=== PATIENT | female | born 1990 | race Caucasian/White ===

== ENCOUNTER 2025-06-01 09:31 | Outpatient (AMB) | payer MEDICARE, MEDICAID, SELFPAY ==
--- OUTSIDE RECORDS SUMMARY | 2017-04-16 12:35 | XMS_ITS | Encounter Summary ---
Author Organization [facility] Address [address] [place] [address] Care Team Providers Care Rotary Filter Operator Name Role Phone Linda Denise MD Primary Care Provider Encounter Details Date Type Department Care Team (Late st Contact Info) Description 04/16/2017 12:35 PM EDT Hospital Encounter [facility] INTAKE [address] [place] [address] Charisse Quinonez MD [address] [place] [address] Social History Tobacco Use Types Packs/Day Years [...] as of this encounter Functional Status * Audit-C Score Answer Date of Assessment Author 0 [...] on filedocumented in this encounter Care Teams Rotary Filter Operator Relationship Specialty Start Date End Date Linda Denise MD [address] [place] [id number] PCP - General 10/07/16 03/21/22 documented as of this encounter
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
[2025-06-01 09:44] VITALS: BP 104/56; PULSE 78; TEMP 36.8; O2SAT 99; BMI 33.4
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
--- OUTSIDE RECORDS SUMMARY | 2025-06-01 10:33 | XMS_ITS ---
Author Name [facility] Organization Unknown Results Test Name/Text Value Interpretation Date Range Source ALBUMIN SERPL BCG [facility] 4.0 g/dL Normal 04/28/2024 3.5 - 5 [facility] PROT SERPL [facility] 7.1 g/dL Normal 04/28/2024 6.4 - 8.5 [facility] BUN SERPL MCNC 9.0 mg/dL Normal 04/28/2024 7 - 17 [facility] BILIRUB SERPL MCNC 0.3 mg/dL Normal 04/28/2024 0.3 - 1 [facility] ALP SERPL-CCNC 54.0 U/L Normal 04/28/2024 34 - 104 [facility] CREAT SERPL MCNC 0.6 mg/dL Normal 04/28/2024 0.5 - 1 [facility] ANION GAP SERPL SCNC 6.0 mmol/L Normal 04/28/2024 5 - 14 [facility] CALCIUM SERPL MCNC 9.1 mg/dL Normal 04/28/2024 8.4 - 10.2 [facility] POTASSIUM SERPL SCNC 4.0 mmol/L Normal 04/28/2024 3.5 - 5.1 [facility] CHLORIDE SERPL SC[facility] 104.0 mmol/L Normal 04/28/2024 98 - 1 07 [facility] GLUCOSE SERPL MC[facility] 91.0 mg/dL Normal 04/28/2024 70 - 199 [facility] ALT SERPL CCNC 16.0 U/L Normal 04/28/2024 7 - 52 [facility] AST SERPL CCNC 13.0 U/L Normal 04/28/2024 5 - 40 [facility] SODIUM SERPL SCNC 138.0 mmol/L Normal 04/28/2024 135 - 14 5 [facility] HCO3 SER SCNC 28.0 mmol/L Normal 04/28/2024 24 - 32 [facility] Clarity Ur Refract.auto CLEAR Normal 04/24/2024 [facility] Leukocyte esterase Ur Ql Strip.auto NEGATIVE Normal 04/24/2024 - [facility] Nitrite Ur Ql Strip.auto NEGATIVE Normal 04/24/2024 - [facility] Hgb Ur Ql Strip.auto NEGATIVE Normal 04/24/2024 - [facility] Color Ur Auto STRAW Normal 04/24/2024 [facility] ANH Sp Gr Ur Strip.auto 1.013 Normal 04/24/2024 1.005 - 1.03 [facility] Glucose Ur Ql Strip.auto NEGATIVE Normal 04/24/2024 - [facility] Ketones Ur Ql Strip.auto NEGATIVE Normal 04/24/2024 - [facility] pH Ur Strip.auto 7.0 Normal 04/24/2024 4.5 - 8 [facility] Prot Ur Ql Strip.auto NEGATIVE Normal 04/24/2024 - [facility] SPECIMEN SOURCE XXX URINE CLEAN CATCH Normal 04/23/2024 [facility] HCO3 SER SCNC 25.0 mmol/L Normal 04/23/2024 24 - 32 [facility] CHLORIDE SERPL SCNC 105.0 mmol/L Normal 04/23/2024 98 - 1 07 [facility] SODIUM SERPL SCNC 138.0 mmol/L Normal 04/23/2024 135 - 14 5 [facility] POTASSIUM SERPL SCNC 3.6 mmol/L Normal 04/23/2024 3.5 - 5.1 [facility] CALCIUM SERPL MCNC 9.1 mg/dL Normal 04/23/2024 8.4 - 10.2 [facility] BUN SERPL MCNC 11.0 mg/dL Normal 04/23/2024 7 - 17 [facility] CREAT SERPL MCNC 0.6 mg/dL Normal 04/23/2024 0.5 - 1 [facility] GLUCOSE SERPL MCNC 118.0 mg/dL Normal 04/23/2024 70 - 199 [facility] ANION GAP SERPL SCNC 8.0 mmol/L Normal 04/23/2024 5 - 14 [facility] ALP SERPL-CCNC 59.0 U/L Normal 04/23/2024 34 - 104 [facility] LDH SERPL L TO P CCNC 173.0 U/L Normal 04/23/2024 125 - 220 [facility] AST SERPL CCNC 18.0 U/L Normal 04/23/2024 5 - 40 [facility] ALT SERPL CCNC 20.0 U/L Normal 04/23/2024 7 - 52 [facility] NEUTROPHILS NO. BLD AUTO 8.0 K/uL Above high normal 04/23/2024 1.8 - 7.8 [facility] RBC NO. BLD AUTO 4.08 M/uL Below low normal 04/23/2024 4.2 - 5.4 [facility] MCV RBC AUTO 90.7 fL Normal 04/23/2024 78 - 100 [facility] LYMPHOCYTES NFR BLD AUTO 13.1 % Below low normal 04/23/2024 20 - 48 [facility] EOSINOPHIL NO. BLD AUTO 0.2 K/uL Normal 04/23/2024 0 - 0.5 [facility] MONOCYTES NO. BLD AUTO 0.4 K/uL Normal 04/23/2024 0 - 0.8 [facility] MCH RBC QN AUTO 31.5 pg Normal 04/23/2024 25 - 33 [facility] BASOPHILS NFR BLD AUTO 0.6 % Normal 04/23/2024 0 - 2 [facility] LYMPHOCYTES NO. BLD AUTO 1.3 K/uL Normal 04/23/2024 1 - 3.2 [facility] DIFFERENTIAL TYPE AUTOMATED Normal 04/23/2024 C [facility] HCT VFR BLD AUTO 36.9 % Below low normal 04/23/2024 37 - 47 [facility] MONOCYTES NFR BLD AUTO 3.8 % Normal 04/23/2024 2 - 12 [facility] PMV BLD AUTO 9.5 fL Normal 04/23/2024 7.4 - 11.4 [facility] ANH HGB BLD MCNC 12.8 g/dL Normal 04/23/2024 12.5 - 16 [facility] RAN PLATELET NO. BLD AUTO 254.0 K/uL Normal 04/23/2024 150 - 450 [facility] BASOPHILS IN BLOOD BY AUTOMATED COUNT 0.1 K/uL Normal 04/23/2024 0 - 0.2 [facility] NEUTROPHILS NFR BLD AUTO 80.9 % Above high normal 04/23/2024 44 - 74 [facility] MCHC RBC AUTO MCNC 34.8 g/dL Normal 04/23/2024 32 - 36 [facility] RDW RBC AUTO RTO 12.2 % Normal 04/23/2024 12.1 - 16.2 [facility] WBC NO. BLD AUTO 9.9 K/uL Normal 04/23/2024 4 - 10.5 [facility] EOSINOPHIL NFR BLD AUTO 1.6 % Normal 04/23/2024 0 - 6 [facility] BILIRUB DIRECT SERPL MCNC 0.1 mg/dL Normal 04/23/2024 0 - 0.2 [facility] BILIRUB SERPL MCNC 0.3 mg/dL Normal 04/23/2024 0.3 - 1 [facility] AMYLASE SERPL CCNC 33.0 U/L Normal 04/23/2024 29 - 103 [facility] LIPASE SERPL CCNC 32.0 U/L Normal 04/23/2024 11 - 82 C [facility] DUANE Scl70 Ab Ser-aCnc 0.8 Normal 02/04/2024 [facility] [employer] Ab Ser IA-aCnc 1.6 Normal 02/04/2024 [facility] C4 SERPL MCNC 35.0 mg/dL Normal 01/31/2024 19 - 52 [facility] C3 SERPL MCNC 147.0 mg/dL Normal 01/31/2024 87 - 200 [facility] cCP IgG SerPl-aCnc 1.0 Normal 02/04/2024 [facility] ESR Bld Qn Photometric 24.0 mm/h Above high normal 12/01/2023 0 - 20 [facility] EOSINOPHIL NFR BLD AUTO 5.6 % Normal 11/30/2023 0 - 6 [facility] LYMPHOCYTES NFR BLD AUTO 35.2 % Normal 11/30/2023 20 - 48 [facility] LYMPHOCYTES NO. BLD AUTO 2.1 K/uL Normal 11/30/2023 1 - 3.2 [facility] MONOCYTES NO. BLD AUTO 0.3 K/uL Normal 11/30/2023 0 - 0.8 [facility] EOSINOPHIL NO. BLD AUTO 0.3 K/uL Normal 11/30/2023 0 - 0.5 [facility] MONOCYTES NFR BLD AUTO 4.2 % Normal 11/30/2023 2 - 12 [facility] DIFFERENTIAL TYPE AUTOMATED Normal 11/30/2023 C [facility] NEUTROPHILS NO. BLD AUTO 3.2 K/uL Normal 11/30/2023 1.8 - 7.8 [facility] BASOPHILS IN BLOOD BY AUTOMATED COUNT 0.1 K/uL Normal 11/30/2023 0 - 0.2 [facility] BASOPHILS NFR BLD AUTO 1.1 % Normal 11/30/2023 0 - 2 [facility] NEUTROPHILS NFR BLD AUTO 53.9 % Normal 11/30/2023 44 - 74 [facility] PMV BLD AUTO 10.0 fL Normal 11/30/2023 7.4 - 11.4 [facility] EMG RBC NO. BLD AUTO 4.26 M/uL Normal 11/30/2023 4.2 - 5.4 [facility] HGB BLD MCNC 13.1 g/dL Normal 11/30/2023 12.5 - 16 [facility] MG MCH RBC QN AUTO 30.8 pg Normal 11/30/2023 25 - 33 [facility] MCHC RBC AUTO MCNC 33.3 g/dL Normal 11/30/2023 32 - 36 [facility] RDW RBC AUTO RTO 12.9 % Normal 11/30/2023 12.1 - 16.2 [facility] MCV RBC AUTO 92.4 fL Normal 11/30/2023 78 - 100 [facility] MG WBC NO. BLD AUTO 6.2 K/uL Normal 11/30/2023 4 - 10.5 [facility] HCT VFR BLD AUTO 39.4 % Normal 11/30/2023 37 - 47 [facility] PLATELET NO. BLD AUTO 229.0 K/uL Normal 11/30/2023 150 - 450 [facility] T4 FREE SERPL MCNC 0.7 ng/dL Normal 12/01/2023 0.5 - 1.3 [facility] URATE SERPL MCNC 4.4 mg/dL Normal 11/30/2023 2.5 - 7 [facility] T3 SERPL MCNC 118.0 ng/dL Normal 12/01/2023 70 - 204 [facility] POTASSIUM SERPL SCNC 3.8 mmol/L Normal 11/30/2023 3.5 - 5.1 [facility] CALCIUM SERPL MCNC 9.1 mg/dL Normal 11/30/2023 8.4 - 10.2 [facility] ALP SERPL-CCNC 62.0 U/L Normal 11/30/2023 34 - 104 [facility] ALT SERPL CCNC 17.0 U/L Normal 11/30/2023 7 - 52 [facility] GLUCOSE SERPL MCNC 93.0 mg/dL Normal 11/30/2023 70 - 199 [facility] PROT SERPL MCNC 6.6 g/dL Normal 11/30/2023 6.4 - 8.5 [facility] ANION GAP SERPL SCNC 11.0 mmol/L Normal 11/30/2023 5 - 14 [facility] AST SERPL CCNC 15.0 U/L Normal 11/30/2023 5 - 40 [facility] CREAT SERPL MCNC 0.6 mg/dL Normal 11/30/2023 0.5 - 1 [facility] CHLORIDE SERPL SCNC 106.0 mmol/L Normal 11/30/2023 98 - 1 07 [facility] HCO3 SER SCNC 23.0 mmol/L Below low normal 11/30/2023 24 - 3 2 [facility] ALBUMIN SERPL BCG MCNC 3.9 g/dL Normal 11/30/2023 3.5 - 5 [facility] BILIRUB SERPL MCNC 0.3 mg/dL Normal 11/30/2023 0.3 - 1 [facility] SODIUM SERPL SCNC 140.0 mmol/L Normal 11/30/2023 135 - 14 5 [facility] BUN SERPL MCNC 11.0 mg/dL Normal 11/30/2023 7 - 17 [facility] AST SERPL CCNC 14.0 U/L Normal 07/09/2023 5 - 40 [facility] ALT SERPL CCNC 15.0 U/L Normal 07/09/2023 7 - 52 [facility] ALP SERPL-CCNC 58.0 U/L Normal 07/09/2023 34 - 104 [facility] BUN SERPL MCNC 9.0 mg/dL Normal 07/09/2023 7 - 17 [facility] ALBUMIN SERPL BCG MCNC 3.9 g/dL Normal 07/09/2023 3.5 - 5 [facility] BILIRUB SERPL MCNC 0.3 mg/dL Normal 07/09/2023 0.3 - 1 [facility] PROT SERPL MCNC 6.9 g/dL Normal 07/09/2023 6.4 - 8.5 [facility] CALCIUM SERPL MCNC 8.8 mg/dL Normal 07/09/2023 8.4 - 10.2 [facility] HCO3 SER SCNC 26.0 mmol/L Normal 07/09/2023 24 - 32 [facility] GLUCOSE SERPL MCNC 97.0 mg/dL Normal 07/09/2023 70 - 199 [facility] ANION GAP SERPL SCNC 7.0 mmol/L Normal 07/09/2023 5 - 14 [facility] CREAT SERPL MCNC 0.5 mg/dL Normal 07/09/2023 0.5 - 1 [facility] POTASSIUM SERPL SCNC 4.1 mmol/L Normal 07/09/2023 3.5 - 5.1 [facility] SODIUM SERPL SCNC 139.0 mmol/L Normal 07/09/2023 135 - 14 5 [facility] CHLORIDE SERPL SCNC 106.0 mmol/L Normal 07/09/2023 98 - 1 07 [facility] TSH SerPl DL<=0.005 mIU/L-aCnc 1.83 uIU/mL Normal 07/09/2023 0.45 - 5.33 [facility] FOLATE SERPL MCNC 13.3 ng/mL Normal 07/09/2023 3 - [facility] VIT B12 SER MCNC 232.0 pg/mL Normal 07/09/2023 180 - 914 [facility] MCH RBC QN AUTO 30.0 pg Normal 07/09/2023 25 - 33 [facility] HCT VFR BLD AUTO 37.0 % Normal 07/09/2023 37 - 47 [facility] WBC NO. BLD AUTO 6.2 K/uL Normal 07/09/2023 4 - 10.5 [facility] HGB BLD MCNC 12.4 g/dL Below low normal 07/09/2023 12.5 - 16 [facility] MCV RBC AUTO 89.4 fL Normal 07/09/2023 78 - 100 [facility] MG PMV BLD AUTO 9.2 fL Normal 07/09/2023 7.4 - 11.4 [facility] PLATELET NO. BLD AUTO 241.0 K/uL Normal 07/09/2023 150 - 450 [facility] RDW RBC AUTO RTO 12.5 % Normal 07/09/2023 12.1 - 16.2 [facility] RBC NO. BLD AUTO 4.14 M/uL Below low normal 07/09/2023 4.2 - 5.4 [facility] MCHC RBC AUTO MCNC 33.5 g/dL Normal 07/09/2023 32 - 36 [facility] HDLC SERPL-MCNC 48.0 mg/dL Normal 07/09/2023 35 - 80 [facility] LDLc SerPl Calc-mCnc 149.0 mg/dL Above high normal 07/09/2023 50 - 130 [facility] TRIGL SERPL-MCNC 79.0 mg/dL Normal 07/09/2023 - 150 [facility] CHOLEST SERPL-MCNC 213.0 mg/dL Above high normal 07/09/2023 0 - 200 [facility] Hgb A1c MFr Bld HPLC 4.8 % Normal 07/09/2023 - 5.7 [facility] History of Medication Use Medication Directions Dispensed Refills Start Date End Date Status buPROPion XL (WELLBUTRIN XL) 150 mg 24 hr tablet Take 1 tablet (150 mg total) by mouth 1 (one) time each day in the morning. Do not crush, chew, or split. 09/01/19 25 025 active amoxicillin-clavulana te (AUGMENTIN) 875-125 mg per tablet Take 1 tablet by mouth 2 (two) times a day for 10 days. 08/07/20 24 024 active nirmatrelvir-ritonavi r (Paxlovid) 300 mg (150 mg x 2)-100 mg tablet therapy pack Take 3 tablets by mouth every 12 (twelve) hours for 5 days. Take number of ordered nirmatrelvir (300 mg = 2 tablets) and ritonavir (100 mg = 1 tablet) tablets at the same time. 08/07/20 24 024 active azelastine (ASTELIN) 137 mcg (0.1 %) nasal spray Administer 1 spray into each nostril 2 (two) times a day. Use in each nostril as directed 08/07/20 active fluticasone propionate (FLONASE) 50 mcg/actuation nasal spray Administer 2 sprays into each nostril 1 (one) time each day. Shake gently. Before first use, prime pump. After use, clean tip and replace cap. 08/07/20 active ibuprofen (ADVIL,MOTRIN) 600 mg tablet Take 1 tablet (600 mg total) by mouth every 6 (six) hours as needed for pain. 04/28/20 active ibuprofen 600 MG tablet Take 1 tablet (600 mg total) by mouth every 6 (six) hours as needed for pain. 04/28/20 active ibuprofen 600 MG tablet Take 1 tablet (600 mg total) by mouth every 6 (six) hours as needed for pain. 04/28/20 active Ciclopirox 8 % KIT Apply 1 Application topically every night at bedtime. Apply topically every night at bedtime. Apply over nail and surrounding skin. Apply daily over previous coat. After seven (7) days, may remove with alcohol and continue cycle. 04/24/20 active Ciclopirox 8 % KIT Apply 1 Application topically every night at bedtime. Apply topically every night at bedtime. Apply over nail and surrounding skin. Apply daily over previous coat. After seven (7) days, may remove with alcohol and continue cycle. 04/24/20 24 active dicyclomine (BENTYL) 10 mg capsule Take 2 capsules (20 mg total) by mouth 4 (four) times a day before meals and at bedtime. 04/23/20 24 025 active famotidine (PF) (PEPCID) injection 20 mg 20 mg, Intravenous, Once, On Laura 04/23/24 at 1745, For 1 doseMaximum IV Push dose of 40 mg. Dilute to final concentration of 4 mg/mL with 0.9% NaCl (may also use SWFI) and administer over 2 minutes. 04/23/20 24 024 completed ketorolac (TORADOL) injection 15 mg 15 mg, Intravenous, Once, On Laura 04/23/24 at 1745, For 1 dose 04/23/20 completed ondansetron (ZOFRAN) injection 4 mg 4 mg, Intravenous, Once, On Laura 04/23/24 at 1745, For 1 doseIV push over 2 to 5 minutes. 04/23/20 completed sodium chloride 0.9% bolus (NS) 1,000 mL 1,000 mL, Intravenous, at 2,000 mL/hr, Once, On Laura 04/23/24 at 1745, For 1 dose 04/23/20 completed dicyclomine (BENTYL) 10 MG capsule Take 2 capsules (20 mg total) by mouth 4 (four) times a day before meals and at bedtime. 04/23/20 active dicyclomine (BENTYL) 10 MG capsule Take 2 capsules (20 mg total) by mouth 4 (four) times a day before meals and at bedtime. 04/23/20 active ondansetron (ZOFRAN-ODT) 8 MG disintegrating tablet Take 1 tablet (8 mg total) by mouth every 8 (eight) hours as needed for nausea. 04/23/20 active ondansetron (ZOFRAN-ODT) 8 MG disintegrating tablet Take 1 tablet (8 mg total) by mouth every 8 (eight) hours as needed for nausea. 04/23/20 active ondansetron ODT (ZOFRAN-ODT) 8 mg disintegrating tablet Take 1 tablet (8 mg total) by mouth every 8 hours as needed. 04/23/20 active tkscjcbyul-zei-uousa- menth-euc (CICLODAN) 8 % topical solution Apply 1 Application topically every night at bedtime. Apply topically every night at bedtime. Apply over nail and surrounding skin. Apply daily over previous coat. After seven (7) days, may remove with alcohol and continue cycle. 04/21/20 025 active semaglutide (Ozempic) 1 mg/dose (4 mg/3 mL) injection pen Inject 0.75 mL (1 mg total) under the skin once a week. 04/21/20 024 active Semaglutide, 1 MG/DOSE, (Ozempic, 1 MG/DOSE,) 4 MG/3ML SOPN Inject 0.75 mL (1 mg total) under the skin once a week. 04/21/20 active ciclopirox (PENLAC) 8 % solution Apply topically every night at bedtime. Apply over nail and surrounding skin. Apply daily over previous coat. After seven (7) days, may remove with alcohol and continue cycle. 04/21/20 24 active ciclopirox (PENLAC) 8 % solution Apply topically every night at bedtime. Apply over nail and surrounding skin. Apply daily over previous coat. After seven (7) days, may remove with alcohol and continue cycle. 04/21/20 24 active montelukast (SINGULAIR) 10 mg tablet Take 1 tablet (10 mg total) by mouth every night at bedtime. 03/09/20 24 active Semaglutide, 1 MG/DOSE, (Ozempic, 1 MG/DOSE,) 4 MG/3ML SOPN Inject 0.75 mL (1 mg total) under the skin once a week. 03/09/20 024 active prazosin (MINIPRESS) 1 mg capsule Take 1 capsule (1 mg total) by mouth every night at bedtime. 03/09/20 active ergocalciferol (VITAMIN D-2) 1,250 mcg (50,000 unit) capsule Take 1 capsule (50,000 Units total) by mouth once a week. 02/03/20 active ergocalciferol (VITAMIN D2) capsule 10581 units Take 1 capsule (50,000 Units total) by mouth once a week. 02/03/20 active ergocalciferol (VITAMIN D2) capsule 62257 units Take 1 capsule (50,000 Units total) by mouth once a week. 02/03/20 active montelukast (SINGULAIR) 10 MG tablet Take 1 tablet (10 mg total) by mouth every night at bedtime. 01/16/20 24 active montelukast (SINGULAIR) 10 MG tablet Take 1 tablet (10 mg total) by mouth every night at bedtime. 01/16/20 24 active fluticasone propionate (FLONASE) 50 mcg/actuation nasal spray spray/apply 1 spray in each nostril daily. 01/16/20 24 aborted fluticasone (FLONASE) 50 MCG/ACT nasal spray spray/apply 1 spray in each nostril daily. 01/16/20 active Semaglutide,0.25 or 0.5MG/DOS, (Ozempic, 0.25 or 0.5 MG/DOSE,) 2 MG/3ML SOPN Inject 0.75 mL (0.5 mg total) under the skin once a week. 12/31/19 active Semaglutide,0.25 or 0.5MG/DOS, (Ozempic, 0.25 or 0.5 MG/DOSE,) 2 MG/3ML SOPN Inject 0.75 mL (0.5 mg total) under the skin once a week. 12/31/19 active Semaglutide,0.25 or 0.5MG/DOS, (Ozempic, 0.25 or 0.5 MG/DOSE,) 2 MG/3ML SOPN Inject 0.38 mL (0.25 mg total) under the skin once a week. 12/05/19 24 aborted Phentermine HCl 8 MG TABS Take 8 mg by mouth daily. 09/04/19 active topiramate (Topamax) 25 MG tablet Take 2 tablets (50 mg total) by mouth every night at bedtime for 45 days. 09/04/19 active benzonatate (Tessalon Perles) 100 MG capsule Take 1 capsule (100 mg total) by mouth 3 (three) times a day as needed for cough. 08/21/19 24 025 active guaiFENesin-codeine (ROBITUSSIN-AC) 100-10 MG/5ML syrup Take 5 mL by mouth 3 (three) times a day as needed for cough. 08/21/19 24 aborted topiramate (Topamax) 25 MG tablet Take 1 tablet (25 mg total) by mouth every night at bedtime. 07/30/20 active Phentermine HCl 8 MG TABS Take 4 mg by mouth daily. 07/30/20 active Phentermine HCl 8 MG Tab Take 4 mg by mouth. 07/30/20 active topiramate (TOPAMAX) 25 MG tablet 07/30/20 active albuterol (PROVENTIL HFA; VENTOLIN HFA) 108 (90 Base) MCG/ACT inhaler Inhale 2 puffs 4 times daily (every 6 hours) as needed for wheezing. 05/05/20 23 active busPIRone (BUSPAR) 5 MG tablet 04/27/20 active cyanocobalamin ([employer] Vitamin B-12) 1000 MCG tablet Take 1 tablet (1,000 mcg total) by mouth daily. 04/04/20 active cyanocobalamin (VITAMIN B12) 1000 MCG tablet Take 1,000 mcg by mouth. 04/04/20 active busPIRone (BUSPAR) 5 MG tablet Take 1 tablet (5 mg total) by mouth 3 (three) times a day. 03/28/20 023 aborted famotidine (PEPCID) 20 MG tablet Take 1 tablet (20 mg total) by mouth daily. 01/18/20 active famotidine (PEPCID) 20 MG tablet Take 1 tablet by mouth daily. 01/18/20 active hydrOXYzine (ATARAX) 25 MG tablet 25 mgs up to TID PRN severe anxiety 01/18/20 23 active hydrOXYzine (ATARAX) 25 MG tablet 25 mgs up to TID PRN severe anxiety 01/18/20 23 active hydrOXYzine HCl (ATARAX) 25 MG tablet 25 mgs up to TID PRN severe anxiety 01/18/20 23 active hydrOXYzine HCL (ATARAX) 25 mg tablet 25 mgs up to TID PRN severe anxiety 01/18/20 23 active LORazepam (ATIVAN) 0.5 mg tablet Up to BID PRN severe anxiety - MAY CAUSE DROWSINESS 01/18/20 23 active LORazepam (ATIVAN) 0.5 MG tablet Up to BID PRN severe anxiety - MAY CAUSE DROWSINESS 01/18/20 23 active LORazepam (ATIVAN) 0.5 MG tablet Up to BID PRN severe anxiety - MAY CAUSE DROWSINESS 06/01/20 23 active LORazepam (ATIVAN) 0.5 MG tablet Up to BID PRN severe anxiety - MAY CAUSE DROWSINESS 01/18/20 active Amoxicillin-Pot Clavulanate 875-125 MG Oral Tablet Amoxicillin-Pot Clavulanate 875-125 MG Oral TabletTAKE 1 TABLET EVERY 12 HOURS DAILY. Quantity: 20 [facility]: [facility] Greta.Debby, F.A.C.S., [place] Start : 10-Jan-2023 End : [id number] 01/11/20 023 completed Blood Pressure Monitoring Kit Use when feeling lightheaded or dizzy. 01/10/20 23 024 active prazosin (MINIPRESS) 1 MG capsule Take 1 capsule (1 mg total) by mouth every night at bedtime. 12/27/19 23 024 active prazosin (MINIPRESS) 1 MG capsule Take 1 mg by mouth. 12/27/19 23 active prazosin (MINIPRESS) 1 MG capsule Take 1 capsule (1 mg total) by mouth every night at bedtime. 12/27/19 23 active lidocaine (XYLOCAINE) 2 % solution Take 5 mL by mouth 4 (four) times a day as needed for mild pain. Swish and spit. 12/09/19 23 024 active fluticasone (FloNASE) 50 mcg/spray nasal spray 1 spray into each nostril daily. 12/09/19 23 023 active gabapentin (NEURONTIN) 100 mg capsule 09/04/19 23 active gabapentin (NEURONTIN) 100 MG capsule 09/04/19 23 active gabapentin (NEURONTIN) 100 MG capsule 09/04/19 23 active Ferralet 90 one tab PO daily 0 23 023 active ondansetron (ZOFRAN-ODT) 4 MG disintegrating tablet Take 1 tablet (4 mg total) by mouth 3 times daily (every 8 hours) as needed. 08/16/20 22 active diphenhydrAMINE (BENADRYL) 2 % cream Apply topically 3 (three) times a day as needed. 07/31/20 22 active lidocaine (Lidoderm) 5 % 07/23/20 22 active lidocaine (Lidoderm) 5 % 07/23/20 active lidocaine (LIDODERM) 5 % patch 07/23/20 active lidocaine (LIDODERM) 5 % patch Place 1 patch on the skin every 24 hours. 07/20/20 active lidocaine (LMX 4) 4 % cream 07/09/20 completed polyethylene glycol 17 g packet Take 1 packet (17 g total) by mouth daily as needed for constipation. 06/27/20 active HYDROmorphone (DILAUDID) 2 MG tablet Take 1 tablet (2 mg total) by mouth every 4 (four) hours as needed for severe pain. Max Daily Amount: 12 mg 06/26/20 active acetaminophen (TYLENOL) 325 MG tablet Take 2 tablets (650 mg total) by mouth 4 times daily (every 6 hours) as needed for mild pain or moderate pain. 06/26/20 active albuterol (PROVENTIL HFA; VENTOLIN HFA) 108 (90 Base) MCG/ACT inhaler Inhale 1-2 puffs every 4 (four) hours as needed for wheezing. 03/22/20 active acetaminophen (TYLENOL) 500 MG tablet Take 2 tablets (1,000 mg total) by mouth 4 times daily (every 6 hours) as needed for mild pain (pain). 03/22/20 aborted predniSONE (DELTASONE) 20 MG tablet Take 1 tablet (20 mg total) by mouth daily. With food. 03/22/20 aborted docusate sodium 100 mg capsule Take 1 capsule every day by oral route for 30 days. 03/08/20 completed cetirizine (ZyrTEC) 10 MG tablet Take 1 tablet (10 mg total) by mouth daily. 12/20/19 aborted amoxicillin-clavulana te (AUGMENTIN) 875-125 MG per tablet Take 1 tablet by mouth 2 (two) times a day. 12/09/19 aborted benzonatate (TESSALON) 200 MG capsule Take 1 capsule (200 mg total) by mouth 3 (three) times a day as needed for cough. 11/28/19 22 024 active brompheniramine-pseud oephedrine-DM (BROMFED DM) 30-2-10 MG/5ML syrup Take 5 mL by mouth 3 (three) times a day as needed for congestion or cough. 11/28/19 22 aborted ipratropium (ATROVENT) 0.06 % nasal spray 2 sprays into each nostril 3 (three) times a day. 11/28/19 022 aborted butalbital-acetaminop hen-caffeine (FioriCET) 50-300-40 mg Cap capsule Take 1 capsule by mouth every 6 (six) hours. 09/20/19 aborted triamcinolone (NASACORT AQ) 55 MCG/ACT Aerosol nasal spray 1 spray into each nostril daily. 05/17/20 21 aborted albuterol 108 (90 Base) MCG/ACT inhaler Inhale 2 puffs into the lungs every 6 (six) hours as needed for wheezing. 03/20/20 21 active albuterol 108 (90 Base) MCG/ACT inhaler Inhale 2 puffs into the lungs every 6 (six) hours as needed for wheezing. 03/20/20 21 active albuterol HFA (PROAIR HFA ; PROVENTIL HFA ; VENTOLIN HFA) 90 mcg/actuation inhaler Inhale 2 puffs by mouth every 6 hours as needed. 03/20/20 21 active methylPREDNISolone 4 MG Oral Tablet Therapy Pack methylPREDNISolone 4 MG Oral Tablet Therapy PackTake pack as directed Quantity: 1 Refills: 0Cassidy Wiley PA-C Start : [id number] Tablet Pack 07/13/20 19 completed fluticasone (FLONASE) 50 MCG/ACT nasal spray spray/apply 1 spray in each nostril daily. 06/24/20 19 024 active Ibuprofen 800 MG Oral Tablet Ibuprofen 800 MG Oral Tablet Quantity: 21 Refills: 0 Start : [id number] 05/25/20 19 completed Ibuprofen 600 MG Oral Tablet Ibuprofen 600 MG Oral Tablet Quantity: 20 Refills: 0 Start : [id number] 04/11/20 19 completed amoxicillin 875 mg-potassium clavulanate 125 mg tablet TAKE 1 TABLET BY MOUTH TWICE A DAY completed benzonatate 200 mg capsule TAKE 1 CAPSULE BY MOUTH THREE TIMES A DAY NEEDED FOR COUGH completed buspirone 5 mg tablet completed Lidocaine Viscous 2 % mucosal solution SWISH AND SPIT WITH 5 ML BY MOUTH 4 TIMES A DAY NEEDED FOR MILD PAIN completed Lomaira 8 mg tablet TAKE 8 MG BY MOUTH DAILY. completed metronidazole 0.75 % (37.5 mg/5 gram) vaginal gel INSERT 1 APPLICATORFUL VAGINALLY EVERY DAY FOR 5 DAYS completed doxylamine 10 mg-pyridoxine (vit B6) 10 mg tablet,delayed release Take 2 tablets every day by oral route at bedtime for 30 days. completed gabapentin 100 mg capsule 023 completed hydromorphone 2 mg tablet TAKE 1 TABLET BY MOUTH EVERY 6 HOURS NEEDED FOR SEVERE PAIN. MAX DAILY AMOUNT: 8 MG 023 completed ipratropium bromide 42 mcg (0.06 %) nasal spray SPRAY 2 SPRAYS INTO EACH NOSTRIL 3 TIMES A DAY. 023 completed Lidoderm 5 % topical patch PLACE 1 PATCH ONTO THE SKIN DAILY. REMOVE & DISCARD PATCH WITHIN 12 HOURS OR DIRECTED BY 023 completed ondansetron 4 mg disintegrating tablet 023 completed vitamin with iron and folic acid ( VITAMINS) 28-0.8 MG Tab tablet Take 1 tablet by mouth daily. active prednisone 20 mg tablet completed Allergy Relief (cetirizine) 10 mg tablet TAKE 1 TABLET BY MOUTH ONCE DAILY completed azelastine 137 mcg (0.1 %) nasal spray USE 1 SPRAY(S) IN EACH NOSTRIL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
--- OUTSIDE RECORDS SUMMARY | 2025-06-01 10:33 | XMS_ITS | Clinical Summary ---
Author Organization [facility] Address [address] [place] [address] Care Team Providers Care Proration Clerk Name Role Phone Tenzin Amaral MD Primary Care Provider [phone] Allergies Active Allergy Reactions Criticality Noted Date Comments Keflex 07/13/2019 Medications Ibuprofen (ADVIL,MOTRIN) 600 MG tablet 20 0 04/11/2019 Active Ibuprofen (ADVIL,MOTRIN) 800 MG tablet 21 0 05/25/2019 Active methylPREDNISol one (MEDROL DOSPAK) 4 MG tablet Take pack as directed 1 0 07/13/2019 Active methylPREDNISol one (MEDROL DOSPAK) 4 MG tablet Take pack as directed 1 0 09/10/2019 Active Lidocaine (Lidoderm) 5 % patch 30 0 07/23/2022 Active Gabapentin (NEURONTIN) 100 MG capsule 90 0 09/04/2022 Active Benzonatate (TESSALON) 200 MG capsule 21 0 12/08/2022 Active Lidocaine Viscous HCl (XYLOCAINE) 2 % solution SWISH AND SPIT 5 ML BY MOUTH 4 TIMES A DAY NEEDED FOR MILD PAIN 100 0 12/08/2022 Active Prazosin HCl (MINIPRESS) 1 MG capsule TAKE 1 CAPSULE (1 MG TOTAL) BY MOUTH EVERY NIGHT AT BEDTIME 60 0 12/26/2022 Active famotidine (PEPCID) 20 MG tablet 60 0 01/17/2023 Active hydrOXYzine HCl (ATARAX) 25 MG tablet 30 0 01/17/2023 Active LORazepam (ATIVAN) 0.5 MG tablet 10 0 01/17/2023 Active Active Problems Problem Noted Date Diagnosed Date Headache 01/31/2022 Allergic rhinitis 01/31/2022 Nasal congestion 01/06/2022 Chronic sinusitis, unspecified location 05/19/20 22 Dysfunction of both eustachian tubes 07/17/2019 Non-recurrent acute serous otitis media of both ears 07/13/2019 Social History Tobacco Use Types Packs/Day Years Used Date Smoking Tobacco: Never Assessed Comments Unknown Sex and Gender Information Value Date Recorded Sex Assigned at Not on file Legal Sex Female 5:37 PM EDT Gender Identity Not on file Sexual Orientation Not on file Plan of Treatment Health Maintenance Due Date Last Done Comments Hepatitis C Screening 1992 Pap Smear 2008 DTaP/Tdap/Td (1 - Tdap) 01/28/2010 Hep B (1 of 3 - 19+ 3-dose series) 01/28/2011 COVID-19 Vaccine ( - 2024-2 6 season) 2025 Influenza (#1) 2025 Zoster (Shingrix) (1 of 2) 01/28/2042 HPV Vaccine (No Doses Required) Completed Hep A Aged Out No longer eligi ble based on patient's age to complete this topic Hib Aged Out No longer eligi ble based on patient's age to complete this topic Meningococcal ACWY Aged Out No longer eligible based on patient's age to complete this topic Pneumococcal Aged Out No longer eligi ble based on patient's age to complete this topic Care Teams Proration Clerk Relationship Specialty Start Date End Date Tenzni Amaral MD [address] [place] [address] PCP - General 03/25/23
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
== END 2025-06-01 10:23 | disposition home or self-care (01) ==
LOC: HO.HMCFMS 09:31
PROVIDERS: PCP Student in an Organized Health Care Education/Training Program; Visit Provider Student in an Organized Health Care Education/Training Program
DX: M79.2 Neuralgia and neuritis, unspecified (principal); M54.30 Sciatica, unspecified side; F51.5 Nightmare disorder; F43.12 Post-traumatic stress disorder, chronic; F43.10 Post-traumatic stress disorder, unspecified; F41.9 Anxiety disorder, unspecified; F32.A Depression, unspecified; G47.00 Insomnia, unspecified; R06.83 Snoring; E66.811 Obesity, class 1

== ENCOUNTER 2025-06-01 09:31 | Outpatient (REF) | payer MEDICARE, MEDICAID, SELFPAY ==
[2025-06-01 13:18] LABS: Appearance Urine Turbid; Glucose Urine UA Negative (Negative); PH 5.5 (5.0-9.0); Specific Gravity - Urine 1.025 (1.005-1.025)
[2025-06-01 13:25] LABS: MANUAL DIFF FLAG NO
[2025-06-01 13:31] LABS: Hematocrit 38.5 % (37.0-47.0); Hemoglobin 12.7 g/dl (12.0-16.0); Imm Gran Abs Auto 0.01 X10*3/uL (0.00-0.03); Imm Gran Pct Auto 0.2 % (0.0-0.4); Lymphocytes Absolute Auto 2.3 X10*3/uL (1.2-4.9); Mean Corpuscular HGB Conc 33.0 g/dl (31.0-35.0); Mean Corpuscular Hemoglobin 30.1 pg (27.0-33.0); Mean Corpuscular Volume 91.2 fL (80.0-98.0); NRBC Abs Auto 0.000 X10*3/uL (0.0-0.012); NRBC Pct Auto 0.0 /100WBC (0.0-0.2); Platelet Count 256 X10*3/uL (160-400); Red Blood Count 4.22 X10*6/uL (4.20-5.50); White Blood Count 6.0 X10*3/uL (4.8-10.8)
[2025-06-01 13:59] LABS: Alanine Aminotransferase 28 U/L (0-31); Albumin Level 4.1 g/dL (3.5-5.0); Alkaline Phosphatase 67 U/L (39-117); Anion Gap 8 (12-20); Aspartate Amino Transferase 28 U/L (5-31); Blood Urea Nitrogen 11 mg/dL (9-16); Calcium 8.9 mg/dL (8.4-10.2); Carbon Dioxide 26 mmol/L (22-29); Chloride 110 mmol/L (96-108); Cholesterol 232 mg/dL (<200); Estimated Glomerular Filt Rate > 60; HDL Cholesterol 42 mg/dL (>40); Potassium 3.7 mmol/L (3.3-5.1); Sodium 140 mmol/L (135-145); Total Protein 7.1 g/dL (6.5-8.0); Triglycerides 148 mg/dL (<150)
[2025-06-01 14:27] LABS: Folate 6.4 ng/mL (> or = 4.0); Vitamin B12 259 pg/mL (200-900)
[2025-06-02 04:05] LABS: HBS Num1 105.68 mIU/mL (0-7.99); HBsAGNum1 0.41 S/CO (0.00-0.99); HIV Num 1 0.06 S/CO (0.00-0.99); Hepatitis B Surface Antigen Negative (Negative); ~HepC Num1 0.16 S/CO (0.00-0.79); ~Hepatitis B Surface Antibody REACTIVE (Nonreactive); ~Hepatitis C Antibody Nonreactive (Nonreactive)
[2025-06-05 11:44] LABS: VITAMIN D (1,25 OH) D3 32 pg/mL; Vit D (1,25-Dihydroxy) Total 32 pg/mL (18-72); Vitamin D (1,25 OH) D2 <8 pg/mL
== END 2025-06-01 09:32 | disposition home or self-care (01) ==
LOC: HO.HKASLDS 09:31
PROVIDERS: PCP Student in an Organized Health Care Education/Training Program; Visit Provider Student in an Organized Health Care Education/Training Program
DX: Z13.9 Encounter for screening, unspecified (principal); M79.2 Neuralgia and neuritis, unspecified; M54.30 Sciatica, unspecified side; F51.5 Nightmare disorder; F43.12 Post-traumatic stress disorder, chronic; F41.9 Anxiety disorder, unspecified; F32.A Depression, unspecified; G47.00 Insomnia, unspecified; R06.83 Snoring; E66.811 Obesity, class 1; Z68.33 Body mass index [BMI] 33.0-33.9, adult
CPT/HCPCS: 36415; 80053; 80061; 81003; 82607; 82652; 82746; 83036; 84443; 85025; 86706; 86803; 87340; 87389; 96127; 99202

== ENCOUNTER 2025-06-15 11:34 | Outpatient (AMB) | payer MEDICARE, MEDICAID, SELFPAY ==
--- OUTSIDE RECORDS SUMMARY | 2017-04-16 12:35 | XMS_ITS | Encounter Summary ---
Author Organization [facility] Address [address] [place] [address] Care Team Providers Care Statistics Intern Name Role Phone Linda Denise MD Primary Care Provider Encounter Details Date Type Department Care Team (Late st Contact Info) Description 04/16/2017 12:35 PM EDT Hospital Encounter [facility]TA[facility] [address] [place] [address] Charisse Quinonez MD [address] [place] [address] Social History Tobacco Use Types Packs/Day Years Used Date Smoking Tobacco: Never Smokeless Tobacco: Never Alcohol Use Standard Drinks/Week Comments Not Currently 0 (1 standard drink = 0.6 oz pur e alcohol) Occasional AUDIT-C Answer Date Recorded Q1: How often do you have a drink containing alcohol? Never 10/20/2022 Q2: How many drinks containi ng alcohol do you have on a typical day when you are drinking? Patient does not drink Q3: How often do you have si x or more drinks on one occasion? Never 10/20/2022 Comments No Sex and Gender Information Value Date Recorded Sex Assigned at Female 08/21/2022 7:41 AM EST Legal Sex Female 7:57 PM EDT Gender Identity Female 05/15/2022 12:46 PM EDT Sexual Orientation Heterosexual (straight) 08/21 7:41 AM EST COVID-19 Exposure Response Date Recorded In the last 10 days, have yo u been in contact with someone who was confirmed or suspected to have Coronavirus/COVID-19? Unable to assess 12/08/2022 9:30 AM EDT documented as of this encounter Functional Status * AUDIT-C Score Answer Date of Assessment Author 0 10/20/2022 8:55 AM Linda Santo RN * Question Answer Date of Assessment Author AUDIT-C Total Score - Female 0 10/20/2022 8:55 AM Deandre Santo RN Q1: How often do you have a drink containing alcohol? Never 10/20/2022 8:55 AM Deandre Santo RN Q2: How many drinks containing alcohol do you have on a typical day when you are drinking? Patient does not drink 10/20/2022 8:55 AM Linda Santo RN Q3: How often do you have six or more drinks on one occasion? Never 10/20/2022 8:55 AM Deandre Santo RN * Level of Risk per Screen Answer Date of Assessment Author Low Risk 10/20/2022 8:55 AM Linda Santo RN documented as of this encounter Plan of Treatment Not on file documented as of this encounter Visit Diagnoses Not on filedocumented in this encounter Care Teams Statistics Intern Relationship Specialty Start Date End Date Linda Denise MD [address] [place] [id number] PCP - General 10/07/16 03/21/22 documented as of this encounter
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
[2025-06-15 11:40] VITALS: BP 117/57; PULSE 68; RESP 18; TEMP 36.7; O2SAT 98; BMI 34.3
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
--- OUTSIDE RECORDS SUMMARY | 2025-06-15 14:52 | XMS_ITS | Clinical Summary ---
Author Organization [facility] Address [address] [place] [address] Care Team Providers Care Health Insurance Sales Agent Name Role Phone Eugenie Holt MD Primary [...] 12 01/16/2024 Active ergocalciferol (VITAMIN D2) capsule 54271 units Take 1 capsule (50,000 Units total) [...] ADTP (intensive outpt level of care) at [facility] after inpatient stay IOL for increased depression [...] 12/28/2022 Overview: Placed 12/24/2019 Remove : 12/23/2029 [facility] # [id number] Lot # [id number] Encounter for long-term (cur rent) use of medications 07/26/2016 01/30/2018 BMI 34.0-34.9,adult 07/23/2016 09/23/19 Healthcare maintenance 07/23/201612/03 Asthma 07/13/2016 01/30/2018 Bipolar I disorder 06/25/2016 3 Overview: Patient admitted 10/07/[address] [facility]. Per patient Bipolar II, per prior [...] Depression Mother Diabetes Mother Heart disease Mother NE @ 38, now C HF Diabetes Other Hyperlipidemia Other Heart disease Paternal Uncle [place] 51 Other Sister Special needs, mind and [...] age to complete this topic Care Teams Health Insurance Sales Agent Relationship Specialty Start Date End Date Eugenie Holt MD PCP - General 02/12/24
--- OUTSIDE RECORDS SUMMARY | 2025-06-15 14:52 | XMS_ITS | Clinical Summary ---
Author Organization [facility] Address [address] [place] [address] Care Team Providers Care Bankman Name Role Phone Pcp, No Primary Care Provider UnavailJeannine Brunner MD Unavailable [phone] Marti Hudson MD Unavailable [phone] Allergies Active Allergy Reactions Criticality Noted Date [...] Name Priority Date/Time Associated Diagnosis Comments THINPREP PAP(UPHOLSTERER OUTSIDE)GC/CT HPV SCR RFX HPV 16,18/45 Routine 02/21/2024 12:00 AM EDT HIV 1/2 AG/AB CMIA REFLEX TO CONFIRMATION Routine 08/01/2022 8:56 AM EST from Last 3 Months or Most Recently Relevant to Health Maintenance Results * ThinPrep Pap(Consumer Marketing Analyst)GC/CT HPV Scr Rfx HPV 16,18/45 (02/21/2024 12:00 [...] Date: NG HPV RESULTS: HPV mRNA E6/E7 [id number] Approved: 02/24/24 Negative REF RANGE: Negative CPT Codes: 35386 ICD Codes: Z01.419, Z11.3 02/21/2024 02/22/2024 2:3 4 AM EDT Marti Hudson MD LAB AMB PATH/CYTO ORDERAB LES Final Result Performing Organization Address City/[facility]/ZIP Co de Phone Number [facility] [address], [place] * HIV 1/2 Ag/Ab CMIA Reflex to Confirmation (08/01/2022 8:56 AM EST) HIV Ag/Ab, 4th Gen Non-Reacti ve Non-Reacti ve [facility] Comment: Results show no evidence of infection by HIV 1/2. If clinically indicated, repeat CMIA or test by nucleic acid amplification. Other 08/01/2022 8:56 AM EST 08/01/2022 8:38 PM EST Narrative [facility] CT [facility] - 08/02/2022 5:33 AM EST FASTING:YES Marti Hudson MD LAB BLOOD ORDERABLES Radha l Result Performing Organization Address [facility]/ZIP Co de Phone Number [facility] [address] from Last 3 Months or Most Recently Relevant to Health Maintenance Insurance [facility] [employer] [facility] [employer] Advance Directives * Full Code [...] Child, Parent, Adult Sibling, Grandparent) Care Teams Bankman Relationship Specialty Start Date End Date Pcp, No PCP - General General Medicine 06/24/22 Jeannine Stearns MD [address] [place] [id number] Family Medicine 06/24/22 Marti Hudson MD [address] [place] [id number] Obstetrics and Gynecology 03/13/22
--- OUTSIDE RECORDS SUMMARY | 2025-06-15 14:52 | XMS_ITS | Clinical Summary ---
Author Organization [facility] Address [address] [place] [address] Care Team Providers Care Gunstock Spray Unit Adjuster Name Role Phone Tenzin Amaral MD Primary Care Provider [phone] Allergies Active Allergy Reactions Criticality Noted Date [...] age to complete this topic Care Teams Gunstock Spray Unit Adjuster Relationship Specialty Start Date End Date Tenzin Amaral MD [address] [place] [address] PCP - General 03/25/23
--- OUTSIDE RECORDS SUMMARY | 2025-06-15 14:52 | XMS_ITS | Clinical Summary ---
Author Organization [facility] Address [address] [place] [address] Phone Care Team Providers Care Construction Representative Name Role Phone Fredrick Lee MD Primary Care Provider [phone] Allergies Active Allergy Reactions Criticality Noted Date [...] Severe episode of recurrent major depressive disorder ([facility] V24, [facility] V28) 10/07/2016 Attention deficit hyperactiv ity disorder (ADHD), combined type 09/07/2016 Alcohol abuse, in remission 07/26/2016 Depression 07/26/2016 Overview (07/10/2024): Referred to Adult Day Treatment Program ADTP (intensive outpt level of care) at [facility] after inpatient stay IOL for increased [...] Type Department Care Team Description 05/17/[address] [address] Fredrick Lee MD from Last 3 Months Immunizations Immunization Administration Dates Next Due HPV 9-valent (Gardisil) 9yo to less than 46yo Tdap Tetanus diptheria acell ular pertussis (Boostrix; Adacel) 7yo and older 06/24/2022 Surgical History Surgery Date Site/Laterality Comments WISDOM TOOTH EXTRACTION 08/19/2007 PROCEDURE:WISDOM TOOTH EXTRACTION BREAST SURGERY 03/01/2020 Bilateral PROCEDURE:REDUCTION MAMMAPLASTY;COMMENT:Procedure: BILATERAL BREAST REDUCTION; Surgeon: Christian Steele MD; Location: [facility]; Service: Plastics; Laterality: Bilateral; SECTION 10/21/2022 PROCEDURE: SECTION Medical History Medical History Date Comments Bipolar I disorder ([facility] V24, [facility] V28) 2010 DX:Bipolar I disorder ([facility]);COMMENT:age 20 involuntary hospitalization [place] 24hrs Anxiety 06/25/2016 DX:Anxiety Allergic rhinitis 06/25/2016 [...] CMS/HCC V28) 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[facility]);COMMENT: Cluster B traits per Psych records PUD (peptic ulcer disease) DX:PU D (peptic ulcer disease);COMMENT: stomach ulcers depression DX:Postpar matias depression Conduct disorder DX:Conduct diso rder;COMMENT: by Hx per Psych records Hyperlipidemia DX:Hyperlipidemi a Asthma DX:Asthma Migraine headache DX:Migraine he adache Family History Medical History Relation Name Comments Alcohol abuse Father Drug abuse Father Hyperlipidemia Father Hypertension Father Heart disease Father's Brother [place] 51 Anxiety disorder Mother Depression Mother Diabetes Mother Heart disease Mother [place] @ 38, now C HF Bipolar disorder [...] Results * Cervical Cancer Screening: HPV (02/21/2024) [facility] Cervical Cancer Screening: HPV no interpretation , abstracted [facility] Provider HEALTH MAINTENANCE Final Result * Depression Screening (07/30/2023) [facility] Depression Screening abstracted [facility] Provider HEALTH MAINTENANCE Final Result * (ABNORMAL) Lipid panel (07/09/2023) [facility] Triglycerides 79 <=150 mg/dL Cholesterol 213(A) 0 - 200 mg/dL HDL 48 35 - 80 mg/dL LDL Cholesterol 149(A) 50 - 130 mg/dL Blood Venous blood specimen / Unknown [facility] Provider LAB BLOOD ORDERABLES Radha l Result * HIV Screening (08/01/2022) [facility] HIV Screening abstracted [facility] Provider HEALTH MAINTENANCE Final Result from Last 3 Months or Most Recently Relevant to Health Maintenance Insurance MEDICARE [place]ICA[place] - [place] Care Teams Construction Representative Relationship Specialty Start Date End Date Fredrick Lee MD [address] [place] [address] PCP - General Family Medicine 02/10/25
== END 2025-06-15 11:56 | disposition home or self-care (01) ==
LOC: HO.HMCFMS 11:35
PROVIDERS: Visit Provider Student in an Organized Health Care Education/Training Program
DX: F43.10 Post-traumatic stress disorder, unspecified (principal); F41.9 Anxiety disorder, unspecified; F32.A Depression, unspecified; G47.00 Insomnia, unspecified; J32.9 Chronic sinusitis, unspecified; E66.9 Obesity, unspecified; E78.00 Pure hypercholesterolemia, unspecified; E53.8 Deficiency of other specified B group vitamins; G47.30 Sleep apnea, unspecified

== ENCOUNTER → 2025-06-15 11:34 | Outpatient (BNVA) | payer MEDICARE, MEDICAID, SELFPAY | PROVIDERS: Visit Provider Student in an Organized Health Care Education/Training Program | DX: F43.10 Post-traumatic stress disorder, unspecified (principal); F41.9 Anxiety disorder, unspecified; F32.A Depression, unspecified; G47.00 Insomnia, unspecified; J32.9 Chronic sinusitis, unspecified; E66.9 Obesity, unspecified; Z68.34 Body mass index [BMI] 34.0-34.9, adult; E78.00 Pure hypercholesterolemia, unspecified; E53.8 Deficiency of other specified B group vitamins; G47.30 Sleep apnea, unspecified | CPT/HCPCS: 99212 ==

== ENCOUNTER 2025-07-30 08:27 | Outpatient (AMB) | payer MEDICARE, MEDICAID, SELFPAY ==
--- NOTE | 2025-07-30 12:50 | A.OFFVIS_ITS ---
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 Allergies cephalexin (From Keflex) Allergy (Severe, Verified 07/30/25 12:50) Itching Medication List - Last Reconciled 07/30/25 by Michael Wells MD azelastine 2 sprays intranasal BID cyanocobalamin (vitamin B-12) 1,000 mcg PO DAILY gabapentin 100 mg PO DAILY hydroxyzine HCl 25 mg PO BEDTIME prazosin 2 mg PO BEDTIME HPI HPI 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: Details: Start time: 12.42m, End time: 1.22pm ?I spent 35 minutes speaking with the patient on the phone plus an additional 5 minutes reviewing and updating records for a total of 40 minutes HPI Comments Details: Previous weight loss efforts: Ozempic up to 1mg for 6mths: 21lbs, regained all weight back Wakes up: 7am, Sleeps: 10pm Breakfast: skips Lunch: 12pm (bagel with cream cheese) Dinner: 5pm (rice and beans, chicken) Snacks: 10am (chips, fruits), 4pm (sandwich with salami and turkey), 7pm (occ ice cream) Exercise: has home stepper that tracks calories Beverages: Coffee: 2/wk (Bowen donuts with 3 sugars), Tea: rarely, Soda: regular Pepsi (3 cans/d), Juice: none, ETOH: none PFSH Medical History (Updated 07/30/25 @ 13:18 by Michael Wells MD) Hypertension Hyperlipidemia Nightmares BMI 37.0-37.9, adult Obesity Class 2 obesity Chronic sinusitis Snoring Insomnia Anxiety and depression PTSD (post-traumatic stress disorder) Surgical History (Updated 07/27/25 @ 14:11 by Yolis Hassan CMA) Hx of section Hx of breast reduction, elective Hx of wisdom tooth extraction Family History (Updated 07/27/25 @ 14:12 by Yolis Hassan CMA) Father Hypercholesteremia Heart disease Mother Diabetes Mental and behavioral problem Son Sleep apnea Asthma Social History (Updated 07/27/25 @ 14:13 by Yolis Hassan CMA) Housing: House Alcohol intake: current Alcohol intake frequency: holidays/special occasions only Patient Tobacco Use Status: Never used Tobacco e-Cigarette/Vaping Use: Never Used service: No Current occupational status: disabled Cognitive needs: No Vision needs: Yes (contacts) Telehealth Telehealth Telehealth Platform: Telephone Location of provider rendering services: practice address Location of patient: address on file Patient Identification confirmed using: Name, : Yes Telehealth method: voice only Patient verbally consented to treatment: Yes Patient verbally consented to billing insurance company: Yes Patient informed of any privacy concerns related to visit: Yes Minutes spent on Phone/Video with Pt.: 40 Assessment & Plan Assessment & Plan (1) Obesity: Code(s): E66.9 - Obesity, unspecified Category: Medical Qualifiers: Obesity type: due to excess calories Obesity classification: adult class 2 (BMI 35 - 39.9) Serious obesity comorbidity presence: with serious comorbidity Body mass index: BMI 37.0-37.9 Qualified Code(s): E66.812 - Obesity, class 2; Z68.37 - Body mass index [BMI] 37.0-37.9, adult Plan: ?1. As we discussed, based on your present BMI you are approximately 80lbs overweight. In my opinion, for any weight loss strategy to be successful should have a high probability to help you lose at least 80lbs out of 80lbs of the extra weight you carry. ?We discussed in detail the available therapeutic options: ?1) our lifestyle intervention program that has an average weight loss of 10% in 3 months.?Some patients continue it for longer and have lost over 50lbs but this is not common. Our lifestyle program can be provided by me. I will provide you with a link to use the aliza if you choose to do so. We use protein shakes and protein bars to replace some of the meals of the day and cover your appetite better. We will decide together the exact combination. ?2) Weight loss medications: these can be used in conjunction with our lifestyle program or you may choose to use them without following a lifestyle program from my program but your own. One option is the Phentermine pill which is affordable even as self pay option, although [employer] could approve it as your secondary insurance. It is well tolerated and most common side effects include blood pressure elevation, dry mouth, difficulty sleeping and heart palpitations. However, it can raise the blood pressure and it may not be the best option for you since you have high blood pressure already. It?s a temporary solution however and most patients tend to put the weight back once the medication is stopped. 3) Medicare does not cover the new weight loss shots unless you have diabetes. We also discussed that you can self pay for the weight loss injections and the cost is $249 for the first month and $499 for any other month thereafter. These payments go to the drug company directly and not to us. As we discussed, this is not a senior care solution, as most patients put all the weight back once they are off the medication. There is also an option to get generic versions from compound pharmacies at cheaper rates but their efficacy and how they are manufactured is not that clear. ?4) We also discussed about the lap sleeve gastrectomy. 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 This will address the reflux as well as the frequent runs to the bathrooom you experience. ??I emphasized the importance of close follow-up, adherence to instructions and good communication. The surgery does not replace the need to change your lifestlyle which is the cause of the obesity problem. The surgery provides the motivation to try again to change your lifestyle, it reduces the appetite and make the transition to a better lifestyle easier and doubles the amount of weight you would lose compared to doing the lifestyle change without the surgery. You will need to be on a liquid diet with protein shakes for 2 weeks before surgery to maximize weight loss and boost your nutritional status to recover better from surgery and also for the first two weeks after surgery to let the stomach heal before we introduce other foods. After the first 2 weeks we will introduce protein bars and soft foods like scrambled eggs, cottage cheese and yogurt and after the 6th week will introduce meat, fish and cooked vegetables in small amounts. Over time you should be able to eat everything in small amounts. Side effects like nausea, vomiting, heartburn or abdominal pain are not common in the practice unless you are not following in the practice. This operation requires lifetime commitment to following in our practice and communication with me. You will much less weight and experience side effects if you don?t communicate or not following in the practice. Complications are rare and in our practice is about 1/10 of the national average. 5) Very Important: We do extensive research in this practice. In very recent research we did, we found that patients who did the lifestyle program without medications followed by weight loss surgery, lost twice as much as they would lose if they used the shots for the same period of time and with the two groups being completely matched in terms of demographics and starting weights. Another research study we did found that when we compared patients who did our lifestyle program without or with the weight loss shots, they lost the same ibis ght but they did not lose any muscle mass. The patients who used the shots lost about 3% of their muscle mass in 3 months which translates to 5-15lbs of actual muscle mass depending on each patient's initial weight. That's not good because it makes you frail and weak and reduces your metabolism. In another research study we did, we found that losing 10-20% of your initial weight before the weight loss surgery, followed by surgery at the lowest possible weight, gives you a significant boost in senior care weight loss 6 years or more after surgery, that makes a difference in the long-term success. Preoperative weight loss is not commonly used by many practices especially at this magnitude, but it is our philosophy and makes a huge difference. Please let me know what you decide.?
[2025-07-30 13:04] VITALS: BMI 37.6
== END 2025-07-30 13:23 | disposition home or self-care (01) ==
LOC: HO.HBS 08:27
PROVIDERS: PCP Student in an Organized Health Care Education/Training Program; Visit Provider Surgery
DX: E66.812 Obesity, class 2 (principal); Z68.37 Body mass index [BMI] 37.0-37.9, adult
CPT/HCPCS: 99203

== ENCOUNTER 2025-08-09 09:15 | Outpatient (REF) | payer MEDICARE, MEDICAID, SELFPAY ==
--- NOTE | ~2025-08-09 | XR_ITS ---
EXAMINATION: XR CHEST 2 VIEWS HISTORY: E66.812 - Obesity, class 2 COMPARISON: There are no prior studies available for comparison. FINDINGS: PA and lateral views of the chest are submitted. The lungs are expanded and clear. There is no pleural effusion, pneumothorax, or pulmonary vascular congestion. The heart is normal in size. The bones are intact. There are surgical clips in the bilateral breasts. XR/XR chest 2V IMPRESSION: Clear lungs. Electronically signed by: Jeb Crandall MD 08/09/2025 09:51 AM EST
[2025-08-09 09:31] LABS: MANUAL DIFF FLAG NO
--- NOTE | 2025-08-09 09:31 | ECG_ITS ---
Test Reason : OBESITY Blood Pressure : */* mmHG Vent. Rate : 63 BPM Atrial Rate : 63 BPM P-R Int : 154 ms QRS Dur : 86 ms QT Int : 404 ms P-R-T Axes : 38 27 61 degrees QTcB Int : 413 ms Normal sinus rhythm Normal ECG No previous ECGs available Referred By: Michael Wells Electronically Signed By: ALLEY BELLO MD
[2025-08-09 09:45] LABS: Hematocrit 38.4 % (37.0-47.0); Hemoglobin 12.6 g/dl (12.0-16.0); Imm Gran Abs Auto 0.01 X10*3/uL (0.00-0.03); Imm Gran Pct Auto 0.2 % (0.0-0.4); Lymphocytes Absolute Auto 1.9 X10*3/uL (1.2-4.9); Mean Corpuscular HGB Conc 32.8 g/dl (31.0-35.0); Mean Corpuscular Hemoglobin 29.7 pg (27.0-33.0); Mean Corpuscular Volume 90.6 fL (80.0-98.0); NRBC Abs Auto 0.000 X10*3/uL (0.0-0.012); NRBC Pct Auto 0.0 /100WBC (0.0-0.2); Platelet Count 254 X10*3/uL (160-400); Red Blood Count 4.24 X10*6/uL (4.20-5.50); White Blood Count 4.6 X10*3/uL (4.8-10.8)
[2025-08-09 10:04] LABS: Hemoglobin A1C 73.7417 umol/L
--- OUTSIDE RECORDS SUMMARY | 2025-08-09 10:18 | XMS_ITS | Clinical Summary ---
Author Organization [facility] Address [address] [place] [address] Care Team Providers Care Stone Finisher Name Role Phone Pcp, No Primary Care Provider UnavailJeannine Brunner MD Unavailable [phone] Marti Hudson MD Unavailable [phone] Allergies Active Allergy Reactions Criticality Noted Date [...] Name Priority Date/Time Associated Diagnosis Comments THINPREP PAP(POLICE JUDGE)GC/CT HPV SCR RFX HPV 16,18/45 Routine 02/21/2024 12:00 AM EDT HIV 1/2 AG/AB CMIA REFLEX TO CONFIRMATION Routine 08/01/2022 8:56 AM EST from Last 3 Months or Most Recently Relevant to Health Maintenance Results * ThinPrep Pap(Turning Machine Operator)GC/CT HPV Scr Rfx HPV 16,18/45 [...] Date: NG HPV RESULTS: HPV mRNA E6/E7 [id number] Approved: 02/24/24 Negative REF RANGE: Negative CPT Codes: 66037 ICD Codes: Z01.419, Z11.3 02/21/2024 02/22/2024 2:3 4 AM EDT Marti Hudson MD LAB AMB PATH/CYTO ORDERAB LES Final Result Performing Organization Address City/[facility]/ZIP Co de Phone Number [facility] [address] [place], [place] * HIV 1/2 Ag/Ab CMIA Reflex to Confirmation (08/01/2022 8:56 AM EST) HIV Ag/Ab, 4th Gen Non-Reacti ve Non-Reacti ve [facility] Comment: Results show no evidence of infection by HIV 1/2. If clinically indicated, repeat CMIA or test by nucleic acid amplification. Other 08/01/2022 8:56 AM EST 08/01/2022 8:38 PM EST Narrative [facility] CT [facility] - 08/02/2022 5:33 AM EST FASTING:YES Marti Hudson MD LAB BLOOD ORDERABLES Radha l Result Performing Organization Address [facility]/ZIP Co de Phone Number [facility] [address] [facility] [address], [place] from Last 3 Months or Most Recently Relevant to Health Maintenance Insurance [facility] [employer] [facility] [employer] Advance Directives * Full Code [...] Child, Parent, Adult Sibling, Grandparent) Care Teams Stone Finisher Relationship Specialty Start Date End Date Pcp, No PCP - General General Medicine 06/24/22 Jeannine Stearns MD [address] [place] [phone] Family Medicine 06/24/22 Marti Hudson MD [address] [place] [phone] Obstetrics and Gynecology 03/13/22
--- OUTSIDE RECORDS SUMMARY | 2025-08-09 10:18 | XMS_ITS | Clinical Summary ---
Author Organization [facility] Address [address] [place] [address] Phone Care Team Providers Care Oncology Technician Name Role Phone Fredrick Lee MD Primary Care Provider [phone] Allergies Active Allergy Reactions Criticality Noted Date [...] nostril as directed 30 mL 12 4 Active fluticasone propionate (FLONASE) 50 mcg/actuation nasal [...] ADTP (intensive outpt level of care) at [facility] after inpatient stay IOL for increased [...] Type Department Care Team Description 05/17/[address] [address] Fredrick Lee MD from Last 3 Months Immunizations Immunization Administration Dates Next Due HPV 9-valent (Gardisil) 9yo to less than 46yo Tdap Tetanus diptheria acell ular pertussis (Boostrix; Adacel) 7yo and older 06/24/2022 Surgical History Surgery Date Site/Laterality Comments WISDOM TOOTH EXTRACTION 08/19/2007 PROCEDURE:WISDOM TOOTH EXTRACTION BREAST SURGERY 03/01/2020 Bilateral PROCEDURE:REDUCTION MAMMAPLASTY;COMMENT:Procedure: BILATERAL BREAST REDUCTION; Surgeon: Christian Steele MD; Location: [facility]; Service: Plastics; Laterality: Bilateral; SECTION 10/21/2022 PROCEDURE: SECTION Medical History Medical History Date Comments Bipolar I disorder ([facility] V24, [facility] V28) 2010 DX:Bipolar I disorder ([facility]);COMMENT:age 20 involuntary hospitalization [facility] 24hrs Anxiety 06/25/2016 DX:Anxiety Allergic rhinitis 06/25/2016 [...] 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[facility]);COMMENT: Cluster B traits per Psych records PUD (peptic ulcer disease) DX:PU D (peptic ulcer disease);COMMENT: stomach ulcers depression DX:Postpar matias depression Conduct disorder DX:Conduct diso rder;COMMENT: by Hx per Psych records Hyperlipidemia DX:Hyperlipidemi a Asthma DX:Asthma Migraine headache DX:Migraine he adache Family History Medical History Relation Name Comments Alcohol abuse Father Drug abuse Father Hyperlipidemia Father Hypertension Father Heart disease Father's Brother [place] 51 Anxiety disorder Mother Depression Mother Diabetes Mother Heart disease Mother [place] @ 38, now C HF Bipolar disorder [...] Results * Cervical Cancer Screening: HPV (02/21/2024) Pathologist [facility] Cervical Cancer Screening: HPV no interpretation , abstracted [facility] Provider HEALTH MAINTENANCE Final Result * Depression Screening (07/30/2023) [facility] Depression Screening abstracted [facility] Provider HEALTH MAINTENANCE Final Result * (ABNORMAL) Lipid panel (07/09/2023) [facility] Triglycerides 79 <=150 mg/dL Cholesterol 213(A) 0 - 200 mg/dL HDL 48 35 - 80 mg/dL LDL Cholesterol 149(A) 50 - 130 mg/dL Blood Venous blood specimen / Unknown [facility] Provider LAB BLOOD ORDERABLES Radha l Result * HIV Screening (08/01/2022) [facility] HIV Screening abstracted [facility] Provider HEALTH MAINTENANCE Final Result from Last 3 Months or Most Recently Relevant to Health Maintenance Insurance MEDICARE [place] - [place] Care Teams Oncology Technician Relationship Specialty Start Date End Date Fredrick Lee MD [address] [place] [address] PCP - General Family Medicine 02/10/25
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
--- OUTSIDE RECORDS SUMMARY | 2025-08-09 10:19 | XMS_ITS | Clinical Summary ---
Author Organization [facility] Prior to 01/16/25 Address [address] [place] [address] Care Team Providers Care Risk Compliance Manager Name Role Phone Eugenie Holt MD Primary [...] 12 01/16/2024 Active ergocalciferol (VITAMIN D2) capsule 71349 units Take 1 capsule (50,000 Units total) [...] ADTP (intensive outpt level of care) at [facility] after inpatient stay IOL for [...] 12/28/2022 Overview: Placed 12/24/2019 Remove : 12/23/2029 [facility] # [id number] Lot # [id number] Encounter for long-term (cur rent) use of medications 07/26/2016 01/30/2018 BMI 34.0-34.9,adult 07/23/2016 09/23/19 Healthcare maintenance 07/23/201612/03 Asthma 07/13/2016 01/30/2018 Bipolar I disorder 06/25/2016 3 Overview: Patient admitted 10/07/16 [facility]. Per patient Bipolar II, per prior [...] Depression Mother Diabetes Mother Heart disease Mother [place] @ 38, now C HF Diabetes Other Hyperlipidemia Other Heart disease Paternal Uncle [place] 51 Other Sister Special needs, mind and [...] age to complete this topic Care Teams Risk Compliance Manager Relationship Specialty Start Date End Date Eugenie Holt MD PCP - General 02/12/24
--- OUTSIDE RECORDS SUMMARY | 2025-08-09 10:19 | XMS_ITS | Clinical Summary ---
Author Organization [facility] Address [address] [place] [address] Care Team Providers Care Melting Supervisor Name Role Phone Tenzin Amaral MD Primary Care Provider [phone] Allergies Active Allergy Reactions Criticality Noted Date [...] congestion 01/06/2022 Chronic sinusitis, unspecified location 01/05/20 Dysfunction of both eustachian tubes 07/17/2019 Non-recurrent [...] - 19+ 3-dose series) 01/28/2011 COVID-19 Vaccine (2024-2 6 season) 2025 Influenza (#1) 2025 Zoster [...] age to complete this topic Care Teams Melting Supervisor Relationship Specialty Start Date End Date Tenzin Amaral MD [address] [place] [address] PCP - General 03/25/23
[2025-08-09 10:45] LABS: Alanine Aminotransferase 35 U/L (0-31); Albumin Level 4.2 g/dL (3.5-5.0); Alkaline Phosphatase 76 U/L (39-117); Anion Gap 12 (12-20); Aspartate Amino Transferase 30 U/L (5-31); Blood Urea Nitrogen 10 mg/dL (9-16); Calcium 9.1 mg/dL (8.4-10.2); Carbon Dioxide 23 mmol/L (22-29); Chloride 110 mmol/L (96-108); Cholesterol 236 mg/dL (<200); Estimated Glomerular Filt Rate > 60; HDL Cholesterol 42 mg/dL (>40); Iron 89 mcg/dL (30-160); Percent Iron Saturation 31 % (15-50); Potassium 4.2 mmol/L (3.3-5.1); Sodium 141 mmol/L (135-145); Total Iron Binding Capacity 283 mcg/dL (228-428); Total Protein 7.2 g/dL (6.5-8.0); Triglycerides 139 mg/dL (<150); Unsaturated Iron Binding 194 ug/dL
[2025-08-09 10:55] LABS: Ferritin 54 ng/mL (10-122)
[2025-08-09 11:18] LABS: Folate 7.4 ng/mL (> or = 4.0); Vitamin B12 264 pg/mL (200-900)
== END 2025-08-09 09:16 | disposition home or self-care (01) ==
LOC: HO.XRAY 09:15
PROVIDERS: PCP Student in an Organized Health Care Education/Training Program; Visit Provider Surgery
DX: I10 Essential (primary) hypertension (principal); E78.5 Hyperlipidemia, unspecified; E66.812 Obesity, class 2; Z68.37 Body mass index [BMI] 37.0-37.9, adult; Z13.0 Encounter for screening for diseases of the blood and blood-forming organs and certain disorders involving the immune mechanism; Z13.1 Encounter for screening for diabetes mellitus
CPT/HCPCS: 36415; 71046; 80053; 80061; 82306; 82607; 82728; 82746; 83036; 83525; 83540; 84425; 84443; 84590; 84630; 85025; 86140; 93005

== ENCOUNTER → 2025-08-09 09:30 | Outpatient (BNV) | payer MEDICARE, MEDICAID, SELFPAY | PROVIDERS: PCP Student in an Organized Health Care Education/Training Program; Visit Provider Radiology Diagnostic Radiology | DX: E66.812 Obesity, class 2 (principal) | CPT/HCPCS: 71046 ==

== ENCOUNTER → 2025-08-09 09:31 | Outpatient (BNV) | payer MEDICARE, MEDICAID, SELFPAY | PROVIDERS: PCP Student in an Organized Health Care Education/Training Program; Visit Provider Internal Medicine Cardiovascular Disease | DX: E66.812 Obesity, class 2 (principal) | CPT/HCPCS: 93010 ==

== ENCOUNTER 2025-08-17 07:24 | Day surgery (SDC) | payer MEDICARE, MEDICAID, SELFPAY ==
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
--- OUTSIDE RECORDS SUMMARY | 2025-08-06 08:37 | XMS_ITS | Clinical Summary ---
Author Organization [facility] Prior to 01/16/25 Address [address] [place] [address] Care Team Providers Care Travel Information Center Supervisor Name Role Phone Eugenie Hotl MD Primary Care Provider Unav ailable Allergies [...] 12 01/16/2024 Active ergocalciferol (VITAMIN D2) capsule 76125 units Take 1 capsule (50,000 Units total) [...] ADTP (intensive outpt level of care) at [facility] after inpatient stay IOL for increased depression [...] 12/28/2022 Overview: Placed 12/24/2019 Remove : 12/23/2029 [facility] # [id number] Lot # [id number] Encounter for long-term (cur rent) use of medications 07/26/2016 01/30/2018 BMI 34.0-34.9,adult 07/23/2016 09/23/19 Healthcare maintenance 07/23/201612/03 Asthma 07/13/2016 01/30/2018 Bipolar I disorder 06/25/2016 3 Overview: Patient admitted 10/07/16 [facility]. Per patient Bipolar II, per prior records [...] Depression Mother Diabetes Mother Heart disease Mother ID @ 38, now C HF Diabetes Other Hyperlipidemia Other Heart disease Paternal Uncle ID 51 Other Sister Special needs, mind and [...] age to complete this topic Care Teams Travel Information Center Supervisor Relationship Specialty Start Date End Date Eugenie Holt MD PCP - General 02/12/24
--- OUTSIDE RECORDS SUMMARY | 2025-08-06 08:37 | XMS_ITS | Clinical Summary ---
Author Organization [facility] Address [address] [place] [address] Care Team Providers Care Wood Model Maker Name Role Phone Tenzin Amaral MD Primary Care Provider [phone] Allergies Active Allergy Reactions Criticality Noted Date [...] Nasal congestion 01/06/2022 Chronic sinusitis, unspecified location 01/05/20 22 Dysfunction of both eustachian tubes 07/17/2019 [...] age to complete this topic Care Teams Wood Model Maker Relationship Specialty Start Date End Date Tenzin Amaral MD [address] [place] [address] PCP - General 03/25/23
--- OUTSIDE RECORDS SUMMARY | 2025-08-06 08:37 | XMS_ITS | Clinical Summary ---
Author Organization [facility] Address [address] [place] [address] Care Team Providers Care Nutritional Chemist Name Role Phone Pcp, No Primary Care Provider UnavailJeannine Brunner MD Unavailable [phone] Marti Hudson MD Unavailable [phone] Allergies Active Allergy Reactions Criticality Noted Date [...] Name Priority Date/Time Associated Diagnosis Comments THINPREP PAP(SHIFT SUPERVISOR RN)GC/CT HPV SCR RFX HPV 16,18/45 Routine 02/21/2024 12:00 AM EDT HIV 1/2 AG/AB CMIA REFLEX TO CONFIRMATION Routine 08/01/2022 8:56 AM EST from Last 3 Months or Most Recently Relevant to Health Maintenance Results * ThinPrep Pap(Assembler Convertible Top)GC/CT HPV Scr Rfx HPV 16,18/45 (02/21/2024 12:00 [...] Date: NG HPV RESULTS: HPV mRNA E6/E7 [id number] Approved: 02/24/24 Negative REF RANGE: Negative CPT Codes: 99783 ICD Codes: Z01.419, Z11.3 02/21/2024 02/22/2024 2:3 4 AM EDT Marti Hudson MD LAB AMB PATH/CYTO ORDERAB LES Final Result Performing Organization Address City/[facility]/ZIP Co de Phone Number [facility] [address], [place] * HIV 1/2 Ag/Ab CMIA Reflex to Confirmation (08/01/2022 8:56 AM EST) HIV Ag/Ab, 4th Gen Non-Reacti ve Non-Reacti ve [facility] Comment: Results show no evidence of infection by HIV 1/2. If clinically indicated, repeat CMIA or test by nucleic acid amplification. Other 08/01/2022 8:56 AM EST 08/01/2022 8:38 PM EST Narrative [facility] CT [facility] - 08/02/2022 5:33 AM EST FASTING:YES Marti Hudson MD LAB BLOOD ORDERABLES Radha l Result Performing Organization Address [facility]/ZIP Co de Phone Number [facility] [address], [place] from Last 3 Months or Most Recently Relevant to Health Maintenance Insurance [facility] [employer] [facility] [employer] Advance Directives * Full [...] Name Relationship Healthcare Agent Relationshi p Communication Emsfin Bonifacio Spouse 4. Next of Kin ( Spouse, Adult Child, Parent, Adult Sibling, Grandparent) Care Teams Nutritional Chemist Relationship Specialty Start Date End Date Pcp, No PCP - General General Medicine 06/24/22 Jeannine Stearns MD [address] [place] [id number] Family Medicine 06/24/22 Marti Hudson MD [address] [place] [phone] Obstetrics and Gynecology 03/13/22
--- NOTE | 2025-08-11 09:41 | HO.ANESPROP2 ---
Documented by User: Loren Stanford NP 08/11/25 09:43 HPI - Anesthesia Eval Consult details Narrative: 35 yr old female for upper endoscopy ?VASHTI: sent for sleep study by PCP May 2025 [facility] Active Problems Active Problems: All Active Problems Hypertension (Acute) Hyperlipidemia (Acute) Nightmares (Acute) BMI 37.0-37.9, adult (Acute) Obesity (Acute) Class 2 obesity (Acute) Chronic sinusitis (Acute) Snoring (Acute) Insomnia (Acute) Anxiety and depression (Acute) PTSD (post-traumatic stress disorder) (Acute) Past Medical History Medical History Hypertension Hyperlipidemia Nightmares BMI 37.0-37.9, adult Obesity Class 2 obesity Chronic sinusitis Snoring Insomnia Anxiety and depression PTSD (post-traumatic stress disorder) Family History Family History Father Hypercholesteremia Heart disease Mother Diabetes Mental and behavioral problem Son Sleep apnea Asthma Surgical History Surgical History Hx of section Hx of breast reduction, elective Hx of wisdom tooth extraction Social History Social History Housing: House Alcohol intake: current Alcohol intake frequency: holidays/special occasions only Patient Tobacco Use Status: Never used Tobacco e-Cigarette/Vaping Use: Never Used service: No Current occupational status: disabled Cognitive needs: No Vision needs: Yes (contacts) Meds Allergies Allergy/AdvReac Type Severity Reaction Status Date / Time cephalexin (From Keflex) Allergy Severe Itching Verified 08/17/25 08:40 Home Medications ?Medication ?Instructions ?Recorded ?Confirmed ?Last Taken ?Type prazosin 2 mg capsule 2 mg PO BEDTIME 07/30/25 08/17/25 Unknown History Exam Narrative Narrative: EKG 08/09/25 Vent. Rate : 63 BPM Atrial Rate : 63 BPM P-R Int : 154 ms QRS Dur : 86 ms QT Int : 404 ms P-R-T Axes : 38 27 61 degrees QTcB Int : 413 ms Normal sinus rhythm Normal ECG No previous ECGs available Assessment and Plan Assessment Anesthesia Assessment: Chart Reviewed Documented by User: Maria E Pedro MD 08/17/25 09:44 PMFSH Past Medical History Medical History Hypertension Hyperlipidemia Nightmares BMI 37.0-37.9, adult Obesity Class 2 obesity Chronic sinusitis Snoring Insomnia Anxiety and depression PTSD (post-traumatic stress disorder) Family History Family History Father Hypercholesteremia Heart disease Mother Diabetes Mental and behavioral problem Son Sleep apnea Asthma Family history of problems with anesthesia: No Surgical History Surgical History Hx of section Hx of breast reduction, elective Hx of wisdom tooth extraction History of Problems with Anesthesia: No Social History Social History Housing: House Alcohol intake: current Alcohol intake frequency: holidays/special occasions only Patient Tobacco Use Status: Never used Tobacco e-Cigarette/Vaping Use: Never Used service: No Current occupational status: disabled Cognitive needs: No Vision needs: Yes (contacts) Meds Allergies Allergy/AdvReac Type Severity Reaction Status Date / Time cephalexin (From Keflex) Allergy Severe Itching Verified 08/17/25 08:40 Home Medications ?Medication ?Instructions ?Recorded ?Confirmed ?Last Taken ?Type prazosin 2 mg capsule 2 mg PO BEDTIME 07/30/25 08/17/25 Unknown History Exam Airway Mallampati Class: II TM Dist: >3cm Neck ROM: Full Heart: rrr Lungs: cta Assessment and Plan Assessment Anesthesia Assessment: Anesthesia Plan Discussed Final Anesthetic Review Family History of Problems with Anesthesia: No History of Problems with Anesthesia: No NPO: Yes ASA Class: III Final Preanesthetic Review: No Changes in Pt Med Stat, Meds/Allgs Chart Reviewed, Consent Obtained/Reviewed and Anes Risks/Benef Reviewed Patient Risk: Intermediate Procedure Risk: Low Anesthetic Plan Anesthetic Plan: MAC: and Agree w/ Assess. and Plan Disposition: Standard PACU
[2025-08-17 08:44] VITALS: BMI 37.6
[2025-08-17 08:51] LABS: UPreg QC Valid YES
[2025-08-17 08:52] VITALS: BP 129/81; PULSE 70; RESP 18; TEMP 36.4; O2SAT 98
[2025-08-17] MEDS: Lactated Ringers 1,000 ML 80 ML IVCONT (09:04)
--- NOTE | 2025-08-17 10:00 | P.HPSUR_ITS ---
Pre-Procedural Eval Section A - 24 Hr Update-Section A only Date of Service: 08/17/25 The patient is an INPATIENT: No The patient has been examined within 24 hours of the surgical procedure. The History & Physical has been completed within 30 days and I have reviewed it.: Yes Section B - Complete if H&P > 30 days Chief Complaint: Morbid (severe) obesity due to excess calories Details of Present Illness: Obesity Relevant Family History (Specify if Yes): No Relevant Social History: None Present Medications: None Medical History: No relevant PMH History of Previous Operations: No relevant previous surgery Allergies: Allergies Allergy/AdvReac Type Severity Reaction Status Date / Time cephalexin (From Keflex) Allergy Severe Itching Verified 08/17/25 08:40 Review of Systems Sugical H&P ROS: Negative: Constitution, Cardiovascular, Respiratory, Neurological, Psychiatric, Hem-Onc, Allergic/Immunologic, Gastrointestinal, Genitourinary, Musculoskeletal, Integumentary, Endocrine and Eye s/Ears/Nose/Throat Exam Surgical H&P Exam: Normal: HEENT, Normal: Heart, Normal: Lungs, Normal: Extremities, Normal: Abdomen, Normal: Skin and Normal: Neurological Plan Diagnosis/Plan: Unchanged (EGD to assess the stomach's anatomy. Risks of bleeding and perforation were discussed with the patient and she is in agreement with the plan.) I have reviewed the history and physical and performed a pertinent physical examination on my patient. No changes have occurred unless specified. Time Spent With Patient Time: Total time managing care of this patient today ____ minutes.
--- NOTE | 2025-08-17 10:05 | PM.OP ---
Brief Operative Note Date of Service: 08/17/25 Pre-op diagnosis: Morbid obesity Post-op diagnosis: same Procedure: PROCEDURE DATE: 08/17/2025 PREOPERATIVE DIAGNOSIS: Morbid obesity POSTOPERATIVE DIAGNOSIS: ?Same as above. Normal endoscopy PROCEDURE: Sqvsrpis-[id number] with biopsies Surgeon: Mayra Wells M.D.. Ph.D. Application Support Lead: None ? Anesthesia: IV sedation Estimated blood loss: ?Minimal FINDINGS AND PROCEDURE: ? OPERATIVE INDICATIONS: ?The patient is a 35 year old female known to me who is interested in bariatric surgery. Based on this information I recommended an upper endoscopy to evaluate the patient's symptoms. Risks and complications of the surgery were discussed with the patient in advance particularly the possibility of perforation or bleeding that may require surgical intervention. The patient understood the risks and was in agreement with the plan. ? PROCEDURE: After informed consent was obtained by the patient, the patient was ?transferred to the Operating Room and was placed in the supine position.? After successful induction of IV sedation, a mouth block was inserted and the patient was placed in the left lateral decubitus position. An upper endoscopy was performed next, the oropharynx and esophagus appeared within the normal limits. There was no hiatal hernia. The z-line was smooth. Two biopsies were obtained from the distal esophagus 2-3 cm proximal to the GE junction and two additional biopsies from the GE junction. The stomach was entered and it appeared to be of normal size. There was no gastritis. There was no stricture or ulcer. A biopsy was obtained from the gastric fundus and the antrum. No significant bleeding was noted from any of the biopsy sites. Retroflexion of the scope confirmed the presence of a normal GE junction. The scope was then advanced into the duodenum all the way to the 4th portion, which appeared to be normal as well. At that point the duodenum ?and the stomach were decompressed and the scope was withdrawn from the patient's mouth. The patient extubated and was transferred in stable condition to the Recovery Room for further care. I was present and performed all steps of the procedure. There were no residents to assist with this case. David Wells M.D., Ph.D. Surgeon: Michael Wells MD Anesthesia: MAC Was an Application Support Lead used for this Procedure?: No Estimated blood loss (mL): 0 IV fluids (mL): 400 Urine output (mL): 0 (No Wiley to record output) Pathology: other (1) antrum x1, 2) fundus x1, 3) GE junction x2, 4) distal esophagus x2) Condition: stable Disposition: PACU
[2025-08-17 10:30] VITALS: BP 116/73; PULSE 89; RESP 18; TEMP 36.3; O2SAT 99
[2025-08-17 10:45] VITALS: BP 107/77; PULSE 70; RESP 16; O2SAT 99
[2025-08-17 10:56] VITALS: BP 114/84; PULSE 72; RESP 16; TEMP 36.6; O2SAT 100
== END 2025-08-17 11:11 | disposition home or self-care (01) ==
PROVIDERS: Nurse Practitioner; PCP Student in an Organized Health Care Education/Training Program; Visit Provider Surgery
PROC: 0DJ08ZZ Inspection of Upper Intestinal Tract, Via Natural or Artificial Opening Endoscopic (ICD-10-PCS; CPT 43235; principal; 2025-08-17 09:10)
DX: E66.01 Morbid (severe) obesity due to excess calories (principal); Z68.37 Body mass index [BMI] 37.0-37.9, adult; I10 Essential (primary) hypertension; E78.5 Hyperlipidemia, unspecified; J32.9 Chronic sinusitis, unspecified; R06.83 Snoring; G47.00 Insomnia, unspecified; F41.8 Other specified anxiety disorders; F43.10 Post-traumatic stress disorder, unspecified; Z79.899 Other long term (current) drug therapy; Z88.1 Allergy status to other antibiotic agents
CPT/HCPCS: 43239; 81025; 88305; 88313; 88342; J2003; J2250; J2704

== ENCOUNTER → 2025-08-17 07:24 | Outpatient (BNV) | payer MEDICARE, MEDICAID, SELFPAY | PROVIDERS: PCP Student in an Organized Health Care Education/Training Program; Visit Provider Surgery | DX: E66.812 Obesity, class 2 (principal); Z68.37 Body mass index [BMI] 37.0-37.9, adult | CPT/HCPCS: 43239 ==